=== PATIENT | male | born 1945 | race Caucasian/White ===

== ENCOUNTER 2019-01-09 07:01 | Outpatient (CLI) | payer MEDICARE, BC ==
[2019-01-09 08:01] LABS: Estimated GFR-MDRD - POC Greater than 90
--- NOTE | 2019-01-09 08:23 | CT ---
CTA ABDOMEN WITH CONTRAST AND 3D VOLUME RENDERING LIMITED CTA PELVIS WITH CONTRAST WITH 3D VOLUME RENDERING: INDICATION: Abdominal pain, intermittent, 1 year in duration. History prior bowel resection. FINDINGS: There is diffuse atherosclerosis of the imaged descending thoracic aorta as well as throughout the ab dominal aorta which demonstrates a tortuous course. There is no high grade stenosis or occlusion of the aorta. No focal dissection is evident. Focal atherosclerotic plaque with calcification does invol ve the origin of the celiac axis producing mild stenosis. There is also atherosclerotic disease with peripherally oriented calcification at the origin of the SMA with mild stenosis. No high-grade s tenosis of the bilateral renal arteries with minimal calcification seen at each renal artery origin. The inferior mesenteric artery demonstrates mild multifocal disease. CTA imaging of the pelvi s reveals calcification throughout the course of each common iliac artery and involving the imaged proximal external and internal iliac arteries, without high-grade stenosis or occlusion. Bilateral perinephric stranding is present. There are multifocal hypodensities of each kidney, some o f which are cysts, and the additional are too small to definitively characterize. There is nondescript fullness of each adrenal gland, without discrete mass. Punctate areas of hypoattenuation of the liver are too small to further characterize, and there are interspersed granulomatous calcifications. Heterogeneous enhancement of the spleen relating to arterial phase of enhancement [place] s limit its evaluation. There is moderate distention of the gallbladder. Pancreas is grossly unremarkable. The bowel is not reliably characterized on the basis of the technique of this exam. Fat -containing periumbilical hernia is present without inflammation. There is diffuse osseous degenerative change. 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 Transcribed Date/Time: 01/09/2019 8:32 AM
[2019-01-09] MEDS ORDERED: Iopamidol 370 76% 100 ML VIAL ONE (11:37)
== END 2019-01-09 07:02 | disposition home or self-care (01) ==
LOC: CT 07:01
PROVIDERS: ATTEND Internal Medicine Gastroenterology
DX: R10.9 Unspecified abdominal pain (principal); I70.0 Atherosclerosis of aorta; Z86.010 Personal history of colon polyps
CPT/HCPCS: 74175; 82565; Q9967

== ENCOUNTER 2019-06-26 08:17 | Outpatient (CLI) | payer MEDICARE, BC ==
--- NOTE | 2019-06-26 13:15 | NM ---
HEPATOBILIARY SCAN: HISTORY:Abdominal pain RADIOPHARMACEUTICAL: 5.2 mCi Technetium 99m Mebrofenin injected intravenously FINDINGS: There is normal tracer extraction by the liver with normal excretion into the biliary tracts and smal l bowel loops and normal filling of the gallbladder. The calculated gallbladder ejection fraction following an oral fatty meal measures 41%. IMPRESSION:Normal exam.
== END 2019-06-26 08:18 | disposition home or self-care (01) ==
LOC: NM 08:17
PROVIDERS: ATTEND Internal Medicine Gastroenterology
DX: R10.9 Unspecified abdominal pain (principal)
CPT/HCPCS: 78227; A9537